=== PATIENT | female | born 1950 | race Caucasian/White ===

== ENCOUNTER 2018-04-16 08:32 | Day surgery (SDC) | payer MEDICARE, BC ==
[2018-04-16] MEDS ORDERED: METF500C PO (22:38)
[2018-04-16] MEDS ORDERED: URSO300 PO (22:39)
[2018-04-16] MEDS ORDERED: RAMI5 PO (22:39)
[2018-04-16] MEDS ORDERED: ALBU90OI INH (22:39)
[2018-04-16] MEDS ORDERED: PANT40 PO (22:40)
[2018-04-16] MEDS ORDERED: METO25 PO (22:42)
[2018-04-16] MEDS ORDERED: PREMARIN TOP (22:42)
[2018-04-16] MEDS ORDERED: MONT10T PO (22:43)
[2018-04-16] MEDS ORDERED: IBUP600 PO (22:43)
[2018-04-16] MEDS ORDERED: INSDET100 SC (22:43)
[2018-04-16] MEDS ORDERED: GLIM4 PO (22:44)
[2018-04-16] MEDS ORDERED: ADULT ASPIRIN81 MG PO (22:44)
[2018-04-16] MEDS ORDERED: GEMF600 PO (22:45)
[2018-04-16] MEDS ORDERED: CICLOPIROX 8%34.6 ML TOP (22:45)
[2018-04-16] MEDS ORDERED: Flovent Diskus50 MCG INH (22:46)
== END 2018-04-16 22:50 | disposition home or self-care (01) ==
LOC: CT 08:32
PROC: 0F903ZZ Drainage of Liver, Percutaneous Approach (ICD-10-PCS; principal; 2018-04-16)
DX: K75.0 Abscess of liver (principal)
CPT/HCPCS: 49405; 87070; 87075; 87076; 87077; 87185; 87186; 87205; Q9967

== ENCOUNTER 2018-04-16 21:56 | Inpatient (IN) | payer MEDICARE, BC ==
[~2018-04-16] VITALS: Ht 160 cm; Wt 71.5 kg
[2018-04-16 22:15] LABS: BASOPHILS ABSOLUTE AUTO 0.05 K/mm3 (0.00-0.23); BASOPHILS PERCENT AUTO 0 % (0-2); EOSINOPHILS PERCENT AUTO 0 % (0-6); Hematocrit 30.8 % (33.0-51.0); Hemoglobin 10.2 g/dL (11.5-16.0); IMMATURE GRAN ABSOLUTE AUTO 0.12 K/mm3 (0.00-0.10); IMMATURE GRAN PERCENT AUTO 1 % (0-1); LYMPHOCYTES ABSOLUTE AUTO 0.91 K/mm3 (0.84-5.20); LYMPHOCYTES PERCENT AUTO 5 % (21-46); MONOCYTES ABSOLUTE AUTO 1.84 K/mm3 (0.16-1.47); MONOCYTES PERCENT AUTO 9 % (4-13); Mean Corpuscular HGB Conc 33.1 g/dL (31.5-36.5); Mean Corpuscular Volume 88 fL (80-100); Mean Platelet Volume 9.5 fL (9.1-12.4); NEUTROPHILS ABSOLUTE AUTO 17.19 K/mm3 (1.96-9.15); NEUTROPHILS PERCENT AUTO 86 % (41-73); Platelet Count 472 K/mm3 (150-400); RDW Coefficient Variation 13.5 % (11.7-14.2); RDW Standard Deviation 43.1 fL (35.1-46.3); Red Blood Cell Count 3.52 M/mm3 (3.80-5.20); White Blood Cell Count 20.11 K/mm3 (4.00-11.30)
[2018-04-16 22:29] LABS: Albumin/Globulin Ratio 0.4 (0.8-1.8); Bilirubin, Total 0.6 mg/dL (0.1-1.0); Bun/Creatinine Ratio 20.6 (12.0-20.0); Calcium, Blood 8.2 mg/dL (8.5-10.1); Creatinine, Blood 1.07 mg/dL (0.40-1.00); Globulin, Blood 5.3 g/dL (2.2-4.0); Total Protein, Blood 7.3 g/dL (6.4-8.2); Troponin I 0.084 ng/mL (0.000-0.040)
[2018-04-16] MEDS ORDERED: METF500C PO (22:38)
[2018-04-16] MEDS ORDERED: ALBU90OI INH (22:39)
[2018-04-16] MEDS ORDERED: URSO300 PO (22:39)
[2018-04-16] MEDS ORDERED: RAMI5 PO (22:39)
[2018-04-16] MEDS ORDERED: PANT40 PO (22:40)
[2018-04-16] MEDS ORDERED: METO25 PO (22:42)
[2018-04-16] MEDS ORDERED: PREMARIN TOP (22:42)
[2018-04-16] MEDS ORDERED: INSDET100 SC (22:43)
[2018-04-16] MEDS ORDERED: IBUP600 PO (22:43)
[2018-04-16] MEDS ORDERED: MONT10T PO (22:43)
[2018-04-16] MEDS ORDERED: ADULT ASPIRIN81 MG PO (22:44)
[2018-04-16] MEDS ORDERED: GLIM4 PO (22:44)
[2018-04-16] MEDS ORDERED: CICLOPIROX 8%34.6 ML TOP (22:45)
[2018-04-16] MEDS ORDERED: GEMF600 PO (22:45)
[2018-04-16] MEDS ORDERED: Flovent Diskus50 MCG INH (22:46)
[2018-04-17 03:58] LABS: BASOPHILS ABSOLUTE AUTO 0.04 K/mm3 (0.00-0.23); BASOPHILS PERCENT AUTO 0 % (0-2); EOSINOPHILS PERCENT AUTO 0 % (0-6); Hematocrit 30.8 % (33.0-51.0); IMMATURE GRAN ABSOLUTE AUTO 0.12 K/mm3 (0.00-0.10); IMMATURE GRAN PERCENT AUTO 1 % (0-1); LYMPHOCYTES ABSOLUTE AUTO 0.97 K/mm3 (0.84-5.20); LYMPHOCYTES PERCENT AUTO 5 % (21-46); MONOCYTES ABSOLUTE AUTO 1.82 K/mm3 (0.16-1.47); MONOCYTES PERCENT AUTO 10 % (4-13); Mean Corpuscular HGB 28.2 pg (26.0-34.0); Mean Corpuscular HGB Conc 32.5 g/dL (31.5-36.5); Mean Corpuscular Volume 87 fL (80-100); Mean Platelet Volume 9.5 fL (9.1-12.4); NEUTROPHILS ABSOLUTE AUTO 15.25 K/mm3 (1.96-9.15); NEUTROPHILS PERCENT AUTO 84 % (41-73); Platelet Count 377 K/mm3 (150-400); RDW Coefficient Variation 13.3 % (11.7-14.2); RDW Standard Deviation 42.9 fL (35.1-46.3); Red Blood Cell Count 3.55 M/mm3 (3.80-5.20)
[2018-04-17 04:14] LABS: Bun/Creatinine Ratio 20.2 (12.0-20.0); Calcium, Blood 8.1 mg/dL (8.5-10.1); Creatinine, Blood 0.99 mg/dL (0.40-1.00); Potassium, Blood 3.6 mmol/L (3.5-5.5)
[2018-04-18 05:05] LABS: BASOPHILS ABSOLUTE AUTO 0.03 K/mm3 (0.00-0.23); BASOPHILS PERCENT AUTO 0 % (0-2); EOSINOPHILS ABSOLUTE AUTO 0.07 K/mm3 (0.00-0.68); EOSINOPHILS PERCENT AUTO 0 % (0-6); Hematocrit 28.2 % (33.0-51.0); Hemoglobin 9.2 g/dL (11.5-16.0); IMMATURE GRAN ABSOLUTE AUTO 0.13 K/mm3 (0.00-0.10); IMMATURE GRAN PERCENT AUTO 1 % (0-1); LYMPHOCYTES ABSOLUTE AUTO 1.12 K/mm3 (0.84-5.20); LYMPHOCYTES PERCENT AUTO 6 % (21-46); MONOCYTES ABSOLUTE AUTO 1.86 K/mm3 (0.16-1.47); MONOCYTES PERCENT AUTO 10 % (4-13); Mean Corpuscular HGB 28.1 pg (26.0-34.0); Mean Corpuscular HGB Conc 32.6 g/dL (31.5-36.5); Mean Corpuscular Volume 86 fL (80-100); Mean Platelet Volume 9.4 fL (9.1-12.4); NEUTROPHILS ABSOLUTE AUTO 15.11 K/mm3 (1.96-9.15); NEUTROPHILS PERCENT AUTO 82 % (41-73); Platelet Count 479 K/mm3 (150-400); RDW Coefficient Variation 13.8 % (11.7-14.2); RDW Standard Deviation 42.8 fL (35.1-46.3); Red Blood Cell Count 3.27 M/mm3 (3.80-5.20); White Blood Cell Count 18.32 K/mm3 (4.00-11.30)
[2018-04-18 05:24] LABS: Albumin, Blood 1.8 g/dL (3.4-5.0); Albumin/Globulin Ratio 0.3 (0.8-1.8); Bilirubin, Total 0.7 mg/dL (0.1-1.0); Bun/Creatinine Ratio 19.5 (12.0-20.0); Calcium, Blood 8.5 mg/dL (8.5-10.1); Creatinine, Blood 1.13 mg/dL (0.40-1.00); Globulin, Blood 5.3 g/dL (2.2-4.0); Potassium, Blood 3.4 mmol/L (3.5-5.5); Total Protein, Blood 7.1 g/dL (6.4-8.2)
[2018-04-18] MEDS ORDERED: FENO160 PO (09:41)
[2018-04-18] MEDS ORDERED: LOSA50 PO (09:41)
[2018-04-18] MEDS ORDERED: GABA300 PO (09:43)
[2018-04-18] MEDS ORDERED: ALIVE WOMEN'S1 EAC1 PO (09:46)
[2018-04-18] MEDS ORDERED: FERROUS SULFATE PO (09:46)
[2018-04-18] MEDS ORDERED: ASCO500 PO (09:47)
[2018-04-19 05:03] LABS: BASOPHILS ABSOLUTE AUTO 0.04 K/mm3 (0.00-0.23); BASOPHILS PERCENT AUTO 0 % (0-2); EOSINOPHILS ABSOLUTE AUTO 0.12 K/mm3 (0.00-0.68); EOSINOPHILS PERCENT AUTO 1 % (0-6); Hematocrit 28.1 % (33.0-51.0); Hemoglobin 9.2 g/dL (11.5-16.0); IMMATURE GRAN ABSOLUTE AUTO 0.12 K/mm3 (0.00-0.10); IMMATURE GRAN PERCENT AUTO 1 % (0-1); LYMPHOCYTES ABSOLUTE AUTO 0.86 K/mm3 (0.84-5.20); LYMPHOCYTES PERCENT AUTO 5 % (21-46); MONOCYTES ABSOLUTE AUTO 1.43 K/mm3 (0.16-1.47); MONOCYTES PERCENT AUTO 8 % (4-13); Mean Corpuscular HGB 28.3 pg (26.0-34.0); Mean Corpuscular HGB Conc 32.7 g/dL (31.5-36.5); Mean Corpuscular Volume 87 fL (80-100); Mean Platelet Volume 9.3 fL (9.1-12.4); NEUTROPHILS ABSOLUTE AUTO 15.56 K/mm3 (1.96-9.15); NEUTROPHILS PERCENT AUTO 86 % (41-73); Platelet Count 503 K/mm3 (150-400); Red Blood Cell Count 3.25 M/mm3 (3.80-5.20); White Blood Cell Count 18.13 K/mm3 (4.00-11.30)
[2018-04-19 05:23] LABS: Bun/Creatinine Ratio 23.6 (12.0-20.0); Calcium, Blood 8.1 mg/dL (8.5-10.1); Creatinine, Blood 1.1 mg/dL (0.40-1.00); Potassium, Blood 3.5 mmol/L (3.5-5.5)
[2018-04-19] MEDS ORDERED: Ferrous Sulfat325 M2 PO (12:35)
[2018-04-19] MEDS ORDERED: METO25 PO (12:37)
[2018-04-19] MEDS ORDERED: CIPR500 PO (12:37)
[2018-04-19] MEDS ORDERED: SACC250C PO (12:37)
[2018-04-19] MEDS ORDERED: Cleocin HCl300 MG PO (12:38)
== END 2018-04-19 14:09 | disposition home or self-care (01) | DRG 871 ==
LOC: ER 21:56 → MEDS 04-17 00:49 → ENPENDDIS 04-19 09:43 → MEDS 04-19 14:09
PROVIDERS: Emergency Medicine; Internal Medicine
DX: A41.9 Sepsis, unspecified organism (principal); K75.0 Abscess of liver; Z79.4 Long term (current) use of insulin; I10 Essential (primary) hypertension; K21.9 Gastro-esophageal reflux disease without esophagitis; J45.909 Unspecified asthma, uncomplicated; E78.5 Hyperlipidemia, unspecified; Z87.891 Personal history of nicotine dependence; E11.649 Type 2 diabetes mellitus with hypoglycemia without coma; T38.3X5A Adverse effect of insulin and oral hypoglycemic [antidiabetic] drugs, initial encounter; Y92.239 Unspecified place in hospital as the place of occurrence of the external cause; K80.50 Calculus of bile duct without cholangitis or cholecystitis without obstruction; E78.1 Pure hyperglyceridemia
CPT/HCPCS: 36415; 49405; 71046; 80048; 80053; 82947; 83605; 84484; 85025; 87040; 87070; 87075; 87076; 87077; 87185; 87186; 87205; 88108; 88305; 93005; 93010; 94760; 96360; 99285; J0360; J0696; J1815; J1956; J2405; J7030; J7120; Q9967